=== PATIENT | female | born 2000 | race Caucasian/White ===

== ENCOUNTER 2022-09-15 08:51 | Emergency (ER) | payer OTHER ==
[2022-09-15] MEDS ORDERED: Magnesium 2 GM/50 ML BAG (IN WATER) ONE (08:58)
[2022-09-15] MEDS ORDERED: Lactated Ringer's 1,000 ML ONE ×2 (08:58→10:38)
[2022-09-15] MEDS ORDERED: Albuterol 2.5 MG/0.5 ML NEB ONE ×3 (09:24→11:58)
[2022-09-15] MEDS ORDERED: Ipratropium Bromide 2.5 ml Neb ONE ×2 (09:25→11:58)
[2022-09-15 09:42] LABS: #Basophils 0.2 thou/uL (0.0-0.2); #Eosinphils 0.5 thou/uL (0.0-0.7); #Lymphocytes 1.2 thou/uL (1.20-3.40); #Monocytes 0.9 thou/uL (0.11-0.59); %Eosinophils 2.6 % (0.0-10.0); %Lymphocytes 6.6 % (21.0-51.0); %Monocytes 5.2 % (0.0-10.0); %Neutrophils 84.7 % (42.0-75.0); Hemoglobin 14.4 g/dL (12.0-16.0); Mean Corpuscular HGB CONC 32.6 g/dL (32.0-36.0); Mean Corpuscular Hemoglobin 30.7 pg (27.0-31.0); Mean Corpuscular Volume 94.1 fl (78.0-98.0); Mean Platelet Volume 10.3 fL (7.4-10.4); Platelet Count 236 10x3/uL (130-400); RBC Distribution Width 11.8 % (11.5-14.5); Red Blood Cell (RBC) Count 4.68 mill/uL (4.20-5.40); White Blood Cell (WBC) Count 17.7 10x3/uL (4.8-10.8)
[2022-09-15 09:44] LABS: BHCG - Serum Negative (NEGATIVE); Pregs Control Background? CLEAR/WHITE (CLR/WHITE); Pregs Control Bar Appear? YES (CONTROL BAR)
[2022-09-15 09:48] LABS: Base Excess-Venous -4.2 mmol/L (-2.0 to 3.0); CO2 Tension (PvCO2) 43.3 mmHg (42.0-51.0); Calcium, Ionized 1.15 mmol/L (1.15-1.33); Chloride 105 mmol/L (98-107); Hemoglobin - Calc 15.5 g/dL (12.0-16.0); Potassium 3.2 mmol/L (3.5-5.1); Sodium 141 mmol/L (138-145); T. Carbon Dioxide 23.3 mmol/L (22.0-28.0); vO2 Saturation-calc 96.5 % (60.0-85.0)
[2022-09-15 09:54] LABS: ALT (SGPT) 12 U/L (8-55); AST (SGOT) 13 U/L (5-34); Albumin 3.9 g/dL (3.5-5.0); Alkaline Phosphatase 60 U/L (40-110); Anion Gap 14 mmol/L (10-20); BUN (Urea Nitrogen) 9 mg/dL (7.0-18.7); Bilirubin, Total 0.8 mg/dL (0.2-1.2); Calc. Creatinine Clearance 0 mL/min (70-130); Calcium 9.2 mg/dL (7.8-10.44); Carbon Dioxide 21 mmol/L (22-29); Chloride 106 mmol/L (98-107); Estimated GFR 112; Globulin 2.9 g/dL (2.4-3.5); Glucose 134 mg/dL (70-105); Magnesium 1.9 mg/dL (1.6-2.6); Potassium 3.3 mmol/L (3.5-5.1); Protein, Total 6.8 g/dL (6.0-8.3); Sodium 138 mmol/L (136-145)
[2022-09-15] MEDS ORDERED: Potassium Chloride 20 MEQ TAB ONE (10:16)
[2022-09-15 11:30] LABS: SARS-CoV-2 NAA Rapid Test Not Detected (NotDetected)
== END 2022-09-15 12:06 | disposition short-term general hospital (02) ==
LOC: MADERS 08:51
DX: J45.901 Unspecified asthma with (acute) exacerbation (principal); R00.0 Tachycardia, unspecified; R94.31 Abnormal electrocardiogram [ECG] [EKG]; E87.6 Hypokalemia; Z20.822 Contact with and (suspected) exposure to COVID-19
CPT/HCPCS: 36415; 71045; 80053; 82330; 82803; 83605; 83735; 84443; 84484; 84703; 85025; 85379; 87040; 93005; 94760; 96365; J3475; J7120; J7611

== ENCOUNTER 2023-02-08 16:08 | Emergency (ER) | payer OTHER | END 2023-02-08 17:02 | disposition home or self-care (01) | LOC: MADERS 16:08 | DX: U07.1 COVID-19 (principal) | CPT/HCPCS: 87635; 94760; 99283 ==

== ENCOUNTER 2023-05-25 12:32 | Emergency (ER) | payer OTHER ==
[2023-05-25] MEDS ORDERED: Acetaminophen 500 MG TAB ONE (13:14)
[2023-05-25 13:23] LABS: Pregnancy Test - Urine (BHCG) Negative (Negative); Pregu Control Background? CLEAR/WHITE (CLR/WHITE); Pregu Control Bar Appear? YES (CONTROL BAR)
[2023-05-25] MEDS ORDERED: Ipratropium/Albuterol 3 ML NEB ONE (13:29)
== END 2023-05-25 14:28 | disposition home or self-care (01) ==
LOC: MADERS 12:32
DX: J06.9 Acute upper respiratory infection, unspecified (principal); J45.901 Unspecified asthma with (acute) exacerbation; R00.0 Tachycardia, unspecified
CPT/HCPCS: 81025; 93005; 94640; J7620